=== PATIENT | male | born 1955 | race Caucasian/White ===

== ENCOUNTER → 2018-08-17 | Outpatient (CLI) | payer BC ==
[2018-08-17 21:56] LABS: CREATININE, serum 2.28 mg/dL (0.66-1.25); POTASSIUM 4.3 mmol/L (3.4-5.0)
[2018-08-17 22:35] LABS: CALCIUM 14.3 mg/dL (8.4-10.2)
== END ==
LOC: ZCOL.LAB 17:39
PROVIDERS: Family Medicine
DX: I10 Essential (primary) hypertension (principal)

== ENCOUNTER → 2018-08-31 | Outpatient (CLI) | payer BC ==
[2018-08-31 09:39] LABS: ALBUMIN 4.1 gm/dL (3.5-5.0); BILIRUBIN,TOTAL 0.4 mg/dL (0.0-1.0); CREATININE, serum 2.46 mg/dL (0.66-1.25); TOTAL PROTEIN 7.7 gm/dL (6.4-8.2)
[2018-09-01 00:20] LABS: PTH,INTACT 1105.5 pg/mL (6.6-88.9)
[2018-09-01 00:36] LABS: CALCIUM, IONIZED, SERUM 2.15 mmol/L (1.19-1.41)
== END ==
LOC: COL.LAB 08:47
PROVIDERS: Family Medicine
DX: E83.52 Hypercalcemia (principal)

== ENCOUNTER → 2018-09-17 | Outpatient (CLI) | payer BC ==
[2018-09-17 09:21] LABS: ALBUMIN 4.3 gm/dL (3.5-5.0); BILIRUBIN,TOTAL 0.4 mg/dL (0.0-1.0); CREATININE, serum 2.31 (0.66-1.25); POTASSIUM 4.5 mmol/L (3.4-5.0); TOTAL PROTEIN 7.9 gm/dL (6.4-8.2)
[2018-09-17 09:41] LABS: CALCIUM 14.4 mg/dL (8.4-10.2)
== END ==
LOC: COL.LAB 08:32
PROVIDERS: Internal Medicine
DX: I10 Essential (primary) hypertension (principal); E83.52 Hypercalcemia

== ENCOUNTER → 2018-10-05 | Outpatient (CLI) | payer BC | LOC: COL.RAD 08:09 | DX: E21.3 Hyperparathyroidism, unspecified (principal); E04.2 Nontoxic multinodular goiter ==

== ENCOUNTER → 2018-10-11 | Outpatient (CLI) | payer BC | LOC: COL.RAD 10:22 | DX: D35.1 Benign neoplasm of parathyroid gland (principal); E21.0 Primary hyperparathyroidism | CPT/HCPCS: A9500 ==

== ENCOUNTER 2018-12-07 10:25 | Day surgery (SDC) | payer BC ==
[2018-12-07] VITALS (10 sets, daily range): BP systolic 119–155; BP diastolic 59–83; PULSE 58–77; TEMP 97.6–97.7
[~2018-12-07] VITALS: Ht 172.7 cm; Wt 90.0 kg
[2018-12-07] MEDS ORDERED: TOPROL XL100 MG PO (11:06)
[2018-12-07] MEDS ORDERED: PRINIVIL20 MG PO (11:06)
--- NOTE | 2018-12-07 15:10 | NUR ---
PATIENT ARRIVED TO ROOM 322-2 POST-OP FROM PACU VIA BED. PATIENT SETTELED INTO ROOM. POST-OP VSS. PRESENT AT THE BEDSIDE. CALL LIGHT WITHIN REACH. PATIENT DENIES ANY OTHER NEEDS AT THIS TIME.
--- NOTE | 2018-12-07 15:25 | NUR ---
PATIENT TOLERATING FLUIDS AND CLEAR LIQUIDS WITHOUT ANY DIFFICULTIES. POST-OP VSS. NECK DRESSING IS CD&I.
--- NOTE | 2018-12-07 20:00 | NUR ---
Patient in bed. Has dry dressing to lower neck. IVF complete, tolerating food and oral fluids well, will SL IV site. Patient is alert and oriented.
--- NOTE | 2018-12-07 23:30 | NUR ---
Patient denies pain. Dressing to neck remains D/I.
[2018-12-08 02:01] VITALS: BP 120/60; PULSE 58; TEMP 97.8
[2018-12-08 04:10] VITALS: BP 115/59; PULSE 57; TEMP 97.7
--- NOTE | 2018-12-08 06:00 | NUR ---
Offers no concerns this AM.
--- NOTE | 2018-12-08 06:45 | NUR ---
awake resting in bed, bedside shift report received from JAYLON Linder
--- NOTE | 2018-12-08 07:30 | NUR ---
continues to rest in bed without needs
[2018-12-08 08:04] VITALS: BP 112/62; PULSE 57; TEMP 98.3
--- NOTE | 2018-12-08 08:30 | NUR ---
full assessment completed, see interventions for further info, attempted to give morning blood pressure meds but since his blood pressure has been lower he wants to wait to talk with before taking them, asking to get up and shower, instructed him to keep dressing to neck dry and verbalizes understanding,
--- NOTE | 2018-12-08 09:47 | NUR ---
had shower and tolerated well, dressing remains CD&I, denies needs
--- NOTE | 2018-12-08 10:35 | NUR ---
EDGARD met with the patient to discuss discharge plan. The patient lives in [place] with his friend, William. He reports independence with ADLs and does not have any DME. The patient's PCP is Dr. Beau Calixto and he receives his medications at the [facility]. He reports no difficulties obtaining his meds. The patient does not have advanced directives in EMR, but he states that he does have them completed and at home. He states that he plans to bring a copy of them to medical records. He reports his DPOA-HC is his friend, William. The patient plans to return home with his friend upon discharge. No additional needs at this time.
--- NOTE | 2018-12-08 11:00 | NUR ---
sitting up in chair eating late breakfast, denies needs
[2018-12-08 11:57] VITALS: BP 99/47; PULSE 62; TEMP 97.6
--- NOTE | 2018-12-08 12:15 | NUR ---
sitting up in chair reading a book, denies needs
--- NOTE | 2018-12-08 14:46 | NUR ---
remains up in chair reading a book, wanting to go home and reminded him Dr Saini is in surgery and would need to see him and that he hadn't forgot him
[2018-12-08 17:07] VITALS: BP 119/56; PULSE 57; TEMP 97.7
--- NOTE | 2018-12-08 18:25 | NUR ---
Dr Saini was in to see patient, INT discontinued, discharge instructions given to patient and his family, verbalizes understanding,
--- NOTE | 2018-12-08 18:30 | NUR ---
discharged ambulatory
== END 2018-12-08 18:30 | disposition home or self-care (01) ==
LOC: SURG 10:25 → SDCO 10:25 → SURG 15:05 → SDCO 12-08 18:30
DX: D35.1 Benign neoplasm of parathyroid gland (principal); E21.0 Primary hyperparathyroidism; I10 Essential (primary) hypertension; E66.9 Obesity, unspecified; Z68.30 Body mass index [BMI] 30.0-30.9, adult; F17.290 Nicotine dependence, other tobacco product, uncomplicated
CPT/HCPCS: OP; J0330; J0360; J0690; J1100; J2405; J2704; J3010; J7120

== ENCOUNTER → 2018-12-13 | Outpatient (CLI) | payer BC ==
[~2018-12-13] MED LIST: PRINIVIL20 MG PO; TOPROL XL100 MG PO
== END ==
LOC: COL.LAB 10:35
DX: E21.0 Primary hyperparathyroidism (principal)

== ENCOUNTER 2020-04-02 15:12 | Emergency (ER) | payer OTHER, BC ==
[~2020-04-02] VITALS: Ht 172.7 cm; Wt 95.5 kg
[2020-04-02 15:46] VITALS: TEMP 98.1
[2020-04-02] MEDS ORDERED: FLEXERIL5 MG PO (16:55)
[2020-04-02] MEDS ORDERED: TOPROL XL 50MG50 MG PO (16:55)
[2020-04-02] MEDS ORDERED: PRINIVIL10 MG PO (16:55)
[2020-04-02 17:18] VITALS: BP 185/120; PULSE 81
== END 2020-04-02 17:18 | disposition home or self-care (01) ==
LOC: COL.ER 15:12
DX: S33.5XXA Sprain of ligaments of lumbar spine, initial encounter (principal); M54.2 Cervicalgia; I10 Essential (primary) hypertension; F17.210 Nicotine dependence, cigarettes, uncomplicated; V89.2XXA Person injured in unspecified motor-vehicle accident, traffic, initial encounter